=== PATIENT | female | born 1955 | race Caucasian/White ===

== ENCOUNTER 2019-01-05 18:24 | Emergency (ER) | payer BC ==
[~2019-01-05] VITALS: Ht 154.9 cm; Wt 76.2 kg
[2019-01-05 18:29] VITALS: Ht 154.9 cm; Wt 76.2 kg
[2019-01-05] MEDS ORDERED: CELEBREX200 MG PO (18:30)
[2019-01-05] MEDS ORDERED: ZYLOPRIM100 MG (18:31)
[2019-01-05] MEDS ORDERED: PROPRANOLOL HCL20 MG PO (18:31)
[2019-01-05] MEDS ORDERED: VITAMIN D31000 UNI2 (18:31)
[2019-01-05] MEDS ORDERED: MULTI-DAY VITAM1 TAB (18:31)
[2019-01-05 18:49] LABS: BASOPHILS 0.1 % (0-2); EOSINOPHILS 0.3 % (0-7); HEMOGLOBIN 13.8 g/dL (12-16); IMMATURE GRANULOCYTES 0.3 % (0-5); LYMPHOCYTES 13.8 % (15-50); MCH 32.5 pg (26.0-34.0); MCHC 33.7 g/dL (31.0-37.0); MCV 96.7 fL (80.0-100.0); MEAN PLATELET VOLUME 12.4 fL (7.4-10.4); MONOCYTES 8.7 % (2-11); NEUTROPHILS 76.8 % (40-80); PLATELET COUNT 188 10x3/uL (130-400); RBC 4.24 10x6/uL (4.00-5.40); RDW 12.7 % (11.5-14.5); WBC 14.2 10x3/uL (4.8-10.8)
[2019-01-05 18:55] LABS: CALC OSMOLALITY 271 mosm/kg (275-300); CALCIUM 8.8 mg/dL (8.5-10.1); CARBON DIOXIDE 24.1 mmol/L (21.0-32.0); CHLORIDE - SERUM 103 mmol/L (98-107); CREATININE - SERUM 0.7 mg/dL (0.6-1.3); GLUCOSE 118 mg/dL (74-106); POTASSIUM - SERUM 3.8 mmol/L (3.5-5.1); SODIUM 135 mmol/L (136-145); UREA NITROGEN 16 mg/dL (7-18); eGFR NON AFRICAN AMERICAN 90 mL/min (90-120)
[2019-01-05 19:01] LABS: ALBUMIN 3.5 g/dL (3.4-5.0); ALKALINE PHOSPHATASE 102 U/L (46-116); ALT (SGPT) 19 U/L (10-68); BILIRUBIN - TOTAL 0.85 mg/dL (0.2-1.3); PROTEIN - SERUM 7.8 g/dL (6.4-8.2)
[2019-01-05 19:20] LABS: APPEARANCE CLEAR (CLEAR); BILIRUBIN NEGATIVE (NEGATIVE); COLOR YELLOW (YELLOW); GLUCOSE NEGATIVE (NEGATIVE); KETONE MODERATE mg/dL (NEGATIVE); NITRITE NEGATIVE (NEGATIVE); PROTEIN NEGATIVE (NEGATIVE); UROBILINOGEN NORMAL (NORMAL)
[2019-01-05] MEDS ORDERED: IBUPROFEN800 MG PO (21:17)
[2019-01-05] MEDS ORDERED: ZOFRAN8 MG PO (21:18)
[2019-01-05 21:45] VITALS: BP 129/71
== END 2019-01-05 21:45 | disposition home or self-care (01) ==
LOC: D.ER 18:24
PROVIDERS: Emergency Medicine
DX: R10.11 Right upper quadrant pain (principal); Z86.19 Personal history of other infectious and parasitic diseases; I10 Essential (primary) hypertension